=== PATIENT | female | born 1945 | race Caucasian/White ===

== ENCOUNTER 2016-06-09 09:22 | Emergency (ER) | payer OTHER, MEDICARE ==
[~2016-06-09] VITALS: Ht 160 cm; Wt 70.0 kg
[~2016-06-09 09:22] MED LIST: BUPR150XL PO; CHOL1CAP14 PO; CYAN1SUB SL; LOSA50TA PO; MACR100C2 PO; PANT40TA3 PO; PHEN0.4T PO; SACC1CAP3 PO; TEMA30CA PO; ZOLE5P IV
[2016-06-09 09:25] VITALS: BP 121/57; PULSE 84; RESP 18; TEMP 97.4; O2SAT 98
[2016-06-09 09:39] VITALS: BP 118/57; PULSE 74; RESP 20; TEMP 97.9; O2SAT 97
[2016-06-09] MEDS ORDERED: TRAZ100T4 PO (09:50)
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
[2016-06-09] MEDS ORDERED: PERC5TAB12 PO (10:49)
[2016-06-09 11:23] VITALS: BP 130/68
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
--- NOTE | 2016-06-10 14:43 | EKG ---
Date Performed: 06/09/2016 Time Performed: 10:06:36 PTAGE: 70 years EKG: Sinus rhythm NORMAL ECG Compared to prior tracing no significant change PREVIOUS TRACING : 08/06/2012 11.42 DOCTOR: Brad Denny Interpretating Date/Time 06/10/2016 14:39:57
== END 2016-06-09 11:24 | disposition home or self-care (01) ==
LOC: NEPA 09:22
DX: R07.89 Other chest pain (principal); I10 Essential (primary) hypertension; Z87.39 Personal history of other diseases of the musculoskeletal system and connective tissue; Z85.3 Personal history of malignant neoplasm of breast; Z87.19 Personal history of other diseases of the digestive system; Z87.448 Personal history of other diseases of urinary system; Z86.69 Personal history of other diseases of the nervous system and sense organs; Z86.59 Personal history of other mental and behavioral disorders; V49.88XA Car occupant (driver) (passenger) injured in other specified transport accidents, initial encounter; Y92.410 Unspecified street and highway as the place of occurrence of the external cause
CPT/HCPCS: 71020; 93005

== ENCOUNTER → 2016-07-12 | Day surgery (SDC) | payer MEDICARE ==
[~2016-07-12] MED LIST changes: +BUPIVACAINE/EPINEPHRINE 0.25% PF 30 ML VIAL ONE; +LACTATED RINGER'S 1000 ML INJ 1,000 ML ONE; -MACR100C2 PO; +MIDAZOLAM HCL 2 MG/2 ML VIAL ONE; +PERC5TAB12 PO; -PHEN0.4T PO; +PROPOFOL 500 MG/50 ML BTL IV ONE; -SACC1CAP3 PO; -TEMA30CA PO; +TRAZ100T4 PO; +ceFAZolin 2 GM PREMIX 50 ML ONE
--- NOTE | 2016-07-12 10:02 | TN ---
cc: MEGAN SILVA M.D. DATE OF SURGERY 07/12/2017 PREOPERATIVE DIAGNOSES 1. Umbilical mass. 2. History of previous malignancy. 3. History of multiple previous abdominal surgeries. POSTOPERATIVE DIAGNOSES 1. Umbilical mass. 2. History of previous malignancy. 3. History of multiple previous abdominal surgeries. PROCEDURE PERFORMED Excision umbilical mass. SURGEON Megan Silva MD [employer]ORE WORKER Chata Macdonald, MS3 ANESTHESIA General LMA. COMPLICATIONS None. INDICATION FOR PROCEDURE Ms. Torres is a very pleasant 71-year-old female who developed a painful, enlarging umbilical mass. She was quite concerned about this due to her personal history of malignancy. She also has had multiple previous abdominal surgeries. On physical exam in the office, she had a concerning umbilical mass that was firm. It was in the right lateral portion of the umbilicus. It was also slightly discolored purple. She requested it be excised for biopsy and I agreed. Risks and benefits of the excision was discussed with her and she was agreeable. DETAILS The patient was identified, brought to the operating room and placed supine on the operating table. After adequate general anesthesia was achieved with LMA, the anterior abdomen was prepped and draped in standard surgical fashion. 0.25% Marcaine was injected in the skin and subcutaneous tissue around the mass. An elliptical incision was used to excise the mass in umbilical skin directly overlying it. The subcutaneous tissue was dissected with sharp dissection down to the level of the base of the mass which seemed to terminate at the abdominal wall fascia. It was excised in toto and sent to pathology for analysis. The small fascial defect was closed with a 2-0 Vicryl suture interrupted x 2. The subcutaneous tissue was closed with 3-0 Vicryl and the skin was closed with a 4-0 Monocryl. Sterile dressings were applied and the patient was awakened and brought to Recovery in stable condition. MD JOYCE Heard/JOSEPH /9:39 AM /9:54 AM
== END | disposition home or self-care (01) ==
LOC: ESDC 07:38
PROVIDERS: ATTEND Surgery Trauma Surgery
DX: R19.05 Periumbilic swelling, mass or lump (principal); Z85.3 Personal history of malignant neoplasm of breast; L92.9 Granulomatous disorder of the skin and subcutaneous tissue, unspecified
CPT/HCPCS: 00400; 11403; 88304; J0690; J2250; J3010; J7120; 88305

== ENCOUNTER → 2016-07-26 | Day surgery (SDC) | payer MEDICARE ==
[~2016-07-26] MED LIST changes: +BUPIVACAINE/EPINEPHRINE 0.25% 50 ML VIAL ONE; -BUPIVACAINE/EPINEPHRINE 0.25% PF 30 ML VIAL ONE; +KETOROLAC TROMETHAMINE 30 MG/ML (IVP) VIAL IV PUSH ONE; +LACTATED RINGER'S 1,000 ML BAG IV ONE; -LACTATED RINGER'S 1000 ML INJ 1,000 ML ONE; +ONDANSETRON HCL 4 MG/2 ML VIAL IV PUSH ONE; +PROPOFOL 200 MG/20 ML AMP IV ONE; -PROPOFOL 500 MG/50 ML BTL IV ONE; -ceFAZolin 2 GM PREMIX 50 ML ONE
--- NOTE | 2016-07-26 11:16 | TN ---
cc: MEGAN SILVA M.D. DATE OF SURGERY: 07/26/2016 PREOPERATIVE DIAGNOSIS Concerning skin lesion, right forearm. POSTOPERATIVE DIAGNOSIS Concerning skin lesion, right forearm. PROCEDURE PERFORMED Wide local excision concerning skin lesion right forearm, 2.5 x 6 cm. SURGEON Megan Silva MD ANESTHESIA TIVA with local. COMPLICATIONS None. INDICATION FOR PROCEDURE Ms. Torres is a pleasant 71-year-old female who had a concerning nonhealing wound on her right forearm. She was very worried this was a possible basal cell or squamous cell cancer. She was seen in the office and requested it be excised. Because of its large size I recommended it should be done in the operating room. Risks and benefits of wide local excision was discussed with her and she was agreeable. DETAILS OF PROCEDURE The patient was identified, brought to the operating room and placed supine on the operating table. After adequate IV sedation was achieved the right forearm was prepped and draped in standard surgical fashion. 0.25% Marcaine was injected in skin and subcutaneous tissue around the lesion. An elliptical 2.5 x 6 cm incision was then made. The lesion was excised to gross negative margins. Subcutaneous fat was dissected with sharp dissection. The lesion was excised in toto and a short stitch was placed superior, long stitch placed lateral in order to orient it. Specimen was sent to pathology for analysis. Bleeding points were controlled with bipolar due to the patient's history of a pacemaker. Attention was now directed to closure. Closure was accomplished in two layers using a 3-0 Vicryl to reapproximate the subcutaneous tissue and a 4-0 Vicryl for the skin. Sterile dressings were applied. The patient was awakened, brought to recovery in stable condition. MD JOYCE Heard/ELISHAL /10:51 AM /11:11 AM
== END | disposition home or self-care (01) ==
LOC: ESDC 08:18
PROVIDERS: ATTEND Surgery Trauma Surgery
DX: D04.61 Carcinoma in situ of skin of right upper limb, including shoulder (principal)
CPT/HCPCS: 00400; 11606; 12032; 88305; J1885; J2250; J2405; J3010; J7120